=== PATIENT | male | born 1970 | race Caucasian/White ===

== ENCOUNTER 2017-04-09 00:01 | Emergency (ER) | payer OTHER ==
--- NOTE | 2017-04-09 00:09 | EDPHY ---
H & P Stated Complaint: SLEEP APNEA- STARTLE AWAKE, TROUBLE SWALLOWING,BRAIN FOG HPI/ROS: HPI CHIEF COMPLAINT: Anxiety, fogginess, gasping for air HISTORY OF PRESENT ILLNESS: This patient 46-year-old male he is otherwise healthy does have a history of obstructive sleep apnea and was instructed to be on CPAP. However patient as of last year is not gotten a CPAP machine. He states he knows he has obstructive sleep apnea and declines the use CPAP. He was diagnosed with this over year ago. He decided come the emergency room is been feeling somewhat anxious he also complains of fogginess across the his head. He states that at times he wakes up gasping for air. He states today he noticed it happened to him during the day while awake. States he was rather peculiar sensation of him trying to gasping for air. States initially he thought he could not swallow and then is able to fully swallow and then feels like he can't get a deep breath in. He denies any chest pain or shortness of breath. Denies numbness or tingling. Denies focal weakness. Denies nausea vomiting or diarrhea. Denies fever. Denies severe headache. Denies trouble swallowing this time. He does report he feels panicky and anxious. He does complain of numbness and tingling in both hands. Past Medical History: Obstructive sleep apnea Past Surgical History: No recent surgery Social History: Denies drugs alcohol tobacco. Family History: Noncontributory ROS REVIEW OF SYSTEMS: A comprehensive 10 point review of systems is otherwise negative aside from elements mentioned in the history of present illness. Exam Constitutional appears well nontoxic no acute distress, anxious, triage nursing summary reviewed, vital signs reviewed, awake/alert. Eyes normal conjunctivae and sclera, EOMI, PERRLA. HENT normal inspection, atraumatic, moist mucus membranes, no epistaxis, neck supple/ no meningismus, no raccoon eyes. Respiratory clear to auscultation bilaterally, normal breath sounds, no respiratory distress, no wheezing. Cardiovascular rate normal, regular rhythm, no murmur, no edema, distal pulses normal. Gastrointestinal soft, non-tender, no rebound, no guarding, normal bowel sounds, no distension, no pulsatile mass. Genitourinary no CVA tenderness. Musculoskeletal no midline vertebral tenderness, full range of motion, no calf swelling, no tenderness of extremities, no meningismus, good pulses, neurovascularly intact. Skin pink, warm, & dry, no rash, skin atraumatic. Neurologic awake, alert and oriented x 3, AAOx3, moves all 4 extremities equally, motor intact, sensory intact, CN II-XII intact, normal cerebellar, normal vision, normal speech. Psychiatric anxious, normal mood/affect. Heme/Lymph/Immune no lymphadenopathy. Differential Diagnosis: Includes but is not limited to in a particular order acute anxiety, panic attack, obstructive sleep apnea, obesity hyperventilation syndrome, acute coronary syndrome, pulmonary hypertension Medical Decision Making: Plan for this patient obtain EKG, IV establishment blood draw, full cardiac cath rn, chest x-ray, CT scan head without contrast, IV fluids, IV Ativan for anxiety 1 mg, re-evaluate. Is workup is normal and he is feeling better I will allow her to go home. I do recommend he follows up with pulmonology for obstructive sleep apnea. Re-evaluation: EKG interpretation by me on record in [employer] system. Impression time of EKG 0022, sinus rhythm rate of 79. LVH present. No acute ischemic change appreciated. CT scan head without contrast negative for acute bleed or stroke. Called to me by Dr. Rojas. 0206: Patient re-evaluate this time is resting comfortably no acute distress. Denies any chest pain or shortness of breath denies headache. Denies trouble swallowing. Not gasping for air. He feels better after IV fluids and IV Ativan. He states he would like to go home. at bedside would like to go home as well. I have not found anything acute causing his symptoms. I do recommend he has close follow-up with his primary care doctor. I do recommend he obtain the CPAP machine. Additionally will for him to pulmonology. Return precautions discussed he understands return emergency room if develops chest pain, shortness of breath, fever, vomiting severe headache trouble swallowing or any questions or concerns. Source: Patient - Personal History Current Tetanus/Diphtheria Vaccine: No - Medical/Surgical History Hx Asthma: No Hx Chronic Respiratory Disease: No Hx Diabetes: No Hx Cardiac Disease: No Hx Renal Disease: No Hx Cirrhosis: No Hx Alcoholism: No Hx HIV/AIDS: No Hx Splenectomy or Spleen Trauma: No Other PMH: SLEEP APNEA, KNEE SURG - Social History Smoking Status: Never smoked Constitutional: Initial Vital Signs Temperature (C) 36.5 C 04/09/17 00:38 Heart Rate 72 04/09/17 00:38 Respiratory Rate 16 04/09/17 00:38 Blood Pressure 135/88 H 04/09/17 00:38 O2 Sat (%) 94 04/09/17 00:38 O2 Delivery Mode Room Air Allergies/Adverse Reactions: No Known Allergies Allergy (Verified 04/09/17 00:03) Home Medications: Medication Instructions Recorded NK [No Known Home Meds] 04/09/17 Medical Decision Making - Data Points Laboratory Results: Laboratory Results 04/09/17 00:30 04/09/17 00:30 04/09/17 04/09/17 04/09/17 00:30 00:30 00:30 WBC 7.25 10^3/uL 10^3/uL (3.80-9.50) RBC 5.10 10^6/uL 10^6/uL (4.40-6.38) Hgb 15.2 g/dL g/dL (13.7-17.5) Hct 44.5 % % (40.0-51.0) MCV 87.3 fL fL (81.5-99.8) MCH 29.8 pg pg (27.9-34.1) MCHC 34.2 g/dL g/dL (32.4-36.7) RDW 12.3 % % (11.5-15.2) Plt Count 334 10^3/uL 10^3/uL (150-400) MPV 9.1 fL fL (8.7-11.7) Neut % (Auto) 39.4 % % (39.3-74.2) Lymph % (Auto) 47.3 % H % (15.0-45.0) [place] % (Auto) 10.5 % % (4.5-13.0) Eos % (Auto) 1.8 % % (0.6-7.6) Baso % (Auto) 0.7 % % (0.3-1.7) Nucleat RBC Rel Count 0.0 % % (0.0-0.2) Absolute Neuts (auto) 2.86 10^3/uL 10^3/uL (1.70-6.50) Absolute Lymphs (auto) 3.43 10^3/uL H 10^3/uL (1.00-3.00) Absolute Monos (auto) 0.76 10^3/uL 10^3/uL (0.30-0.80) Absolute Eos (auto) 0.13 10^3/uL 10^3/uL (0.03-0.40) Absolute Basos (auto) 0.05 10^3/uL 10^3/uL (0.02-0.10) Absolute Nucleated RBC 0.00 10^3/uL 10^3/uL (0-0.01) Immature Gran % 0.3 % % (0.0-1.1) Immature Gran # 0.02 10^3/uL 10^3/uL (0.00-0.10) PT 12.7 SEC SEC (12.0-15.0) INR 0.93 (0.83-1.16) APTT 29.2 SEC SEC (23.0-38.0) D-Dimer 0.29 ug/mLFEU ug/mLFEU (0.00-0.50) Sodium 141 mEq/L mEq/L (135-145) Potassium 3.9 mEq/L mEq/L (3.5-5.2) Chloride 103 mEq/L mEq/L (97-110) Carbon Dioxide 22 mEq/l mEq/l (22-31) Anion Gap 16 mEq/L mEq/L (8-16) BUN 18 mg/dL mg/dL (7-23) Creatinine 0.9 mg/dL mg/dL (0.7-1.3) Estimated GFR > 60 Glucose 106 mg/dL H mg/dL (70-100) Calcium 10.1 mg/dL mg/dL (8.5-10.4) Magnesium 1.8 mg/dL mg/dL (1.6-2.3) Total Bilirubin 0.3 mg/dL mg/dL (0.1-1.4) Conjugated Bilirubin 0.1 mg/dL mg/dL (0.0-0.5) Unconjugated Bilirubin 0.2 mg/dL mg/dL (0.0-1.1) AST 19 IU/L IU/L (17-59) ALT 42 IU/L IU/L (21-72) Alkaline Phosphatase 50 IU/L IU/L (38-126) Creatine Kinase 65 IU/L IU/L (0-224) CK-MB (CK-2) Fraction 0.95 ng/mL ng/mL (0.00-3.19) Troponin I < 0.012 ng/mL ng/mL (0.000-0.034) NT-Pro-B Natriuret Pep 22 pg/mL pg/mL (0-125) Total Protein 7.2 g/dL g/dL (6.3-8.2) Albumin 4.6 g/dL g/dL (3.5-5.0) Lipase 110 IU/L IU/L (23-300) Medications Given: Discontinued Medications Sodium Chloride (Ns) 1,000 mls @ 0 mls/hr IV EDNOW ONE; Wide Open PRN Reason: Protocol Stop: 04/09/17 00:18 Last Admin: 04/09/17 00:33 Dose: 1,000 mls Lorazepam (Ativan Injection) 1 mg IVP EDNOW ONE Stop: 04/09/17 00:18 Last Admin: 04/09/17 00:34 Dose: Not Given Departure - Departure Disposition: Home, Routine, Self-Care Clinical Impression: DELMA (obstructive sleep apnea) Condition: Good Instructions: Snoring (ED), Sleep Apnea (DC) Additional Instructions: 1. Return emergency room if he develops worsening symptoms includes chest pain , shortness of breath, trouble breathing, vomiting, fever. 2. Follow up with her primary care doctor. 3. I do recommend you start on CPAP. Referrals: Terrance Domingo MD [[facility] [place] [facility] [place] Provider] - As per Instructions Christiano Verdin MD [Medical Doctor] - As per Instructions
[2017-04-09] MEDS ORDERED: LORazepam 2 MG/ML INJ IVP ONE (00:17)
[2017-04-09] MEDS ORDERED: NS 1,000 ML IV ONE (00:17)
--- NOTE | 2017-04-09 00:24 | CPEKG ---
Heart Rate: 79 RR Interval: 759 P-R Interval: 208 QRSD Interval: 84 QT Interval: 376 QTC Interval: 432 P [place]: 53 QRS [place]: 1 T Wave [place]: 16 EKG Severity - BORDERLINE ECG - EKG Impression: SINUS RHYTHM EKG Impression: LVH BY VOLTAGE Electronically Signed By: Doe Melendez 09-Apr-2017 06:58:10
[2017-04-09 00:35] LABS: PLATELET COUNT 334 10^3/uL (150-400)
[2017-04-09 00:38] VITALS: TEMP 97.7; O2SAT 94
[2017-04-09 00:57] LABS: CREATINE KINASE 65 IU/L (0-224)
[2017-04-09 01:03] LABS: INR 0.93 (0.83-1.16); PROTIME(PATIENT) 12.7 SEC (12.0-15.0)
[2017-04-09 02:02] VITALS: BP 142/88; PULSE 70; RESP 18
== END 2017-04-09 02:03 | disposition home or self-care (01) ==
DX: G47.33 Obstructive sleep apnea (adult) (pediatric) (principal); E86.9 Volume depletion, unspecified